=== PATIENT | female | born 1975 | race African-American/Black ===

== ENCOUNTER 2020-03-16 11:33 | Emergency (ER) | payer OTHER, SELFPAY ==
[2020-03-16 11:45] VITALS: BP 151/81; PULSE 93; RESP 16; TEMP 36.9; O2SAT 95; BMI 24.1
--- NOTE | 2020-03-16 12:01 | ED_ITS ---
HPI - Allergic Reaction <JOHNATHON Hdez - Last Filed: 03/16/20 13:47> General Chief complaint: Allergic Reaction Stated complaint: allergic reaction Time Seen by Provider: 03/16/20 11:50 Source: patient Mode of arrival: Ambulatory Limitations: no limitations History of Present Illness HPI narrative: This is a 44 year female, nonsmoker, who has past medical history significant for seizure and opioid dependency presents to ED with chief complain of concerns for allergy reaction with itching raised rash, lower lip swelling, nausea after she had smoked new brand of marijuana on evening. She reports itching rash in neck, upper and lower extremities, buttock, and bilateral foot. Patient reports shortly after the smoke she noticed mild rash on the inner corner of eye that became progressively worse. Patient denies chest pain, dyspnea, swelling to throat or tongue, vomiting. Patient thought she was going to have a seizure yesterday with feeling like passing out but this subsided after resting. Patient reports last seizure was in April 2019 and usually has near-syncope symptoms prior to having a seizure. She states seizure started after cold turkey from pain medication and anti anxiety medication in 2017. Patient denies other exposure to new products. Patient reports normal state of health before the rash started and no recent fever, exposure to COVID. Patient has been using Benadryl 50 mg at a time up to 3 times a day yesterday had taken 1 dose at 6:00 a.m.. She is new in town from [place] and does not have PCP. Related Data Home Medications Medication Instructions Recorded Confirmed ferrous sulfate [Iron (ferrous mg 03/16/20 sulfate)] Previous Rx's Medication Instructions Recorded famotidine [Pepcid] 20 mg PO BID 7 Days #14 tab 03/16/20 prednisone 50 mg PO DAILY 5 Days #5 tab 03/16/20 Allergies Allergy/AdvReac Type Severity Reaction Status Date / Time Penicillins Allergy Urticaria Verified 03/16/20 12:15 Review of Systems <JOHNATHON Hdez - Last Filed: 03/16/20 13:47> Review of Systems Narrative: General: Denies fever, chills, fatigue, malaise, sweats. HEENT: See HPI Respiratory: Denies dyspnea, cough, wheezing, hemoptysis, sputum. Cardiovascular: Denies chest pain, palpitations, orthopnea, edema. Gastrointestinal: Denies (+) nausea, vomiting, abdominal pain, diarrhea, constipation, melena. : Denies dysuria, frequency, incontinence, hematuria, urinary retention. Musculoskeletal: Denies weakness, joint pain or bony pain. Skin: See HPI Neurologic: Denies weakness, headache, numbness, change in speech, confusion, seizures, incoordination. Psychiatric: No concerning psychosocial issues. 12-point review of systems is negative except for those stated above. Patient History <JOHNATHON Hdez - Last Filed: 03/16/20 13:47> Medical History Anemia Back pain Opioid dependence Seizure alcohol intake frequency: 0-2 drinks per day Substance Use Type: marijuana Exam <JOHNATHON Hdez - Last Filed: 03/16/20 13:47> Narrative Exam Narrative: GEN: Alert, oriented x 3, well appearing and nourished, and in no acute distress. Head: Normal cephalic, atraumatic. No scalp or temporal tenderness, palpable mass or rash. EYES: Pupils are equal, round, and reactive to light and accommodation. Extraocular muscles are intact bilaterally. There is no subconjunctival hemorrhage, exudate and sclera non-icteric. ENT: Hearing grossly intact. Nose without bleeding, purulent discharge or deviation. Facial sinuses nontender to palpate. Mucous membrane moist, no mucosal lesion. Throat without erythema, edema, tonsillar hypertrophy or exudate. Mild lower lip swelling. Uvula in midline, airway patent. Neck: Trachea in midline. No JVD, non-tender without lymphadenopathy. No masses or thyroid megaly. Supple, non-tender and no meningeal signs. CARDIAC: Normal regular rate and rhythm without murmurs, gallops, or rubs. No chest wall tenderness. No peripheral edema, cyanosis or pallor. Capillary refill is less than 2 seconds. RESPIRATORY: Lungs are clear to auscultate bilaterally. No cough, wheezes, rales, or rhonchi. No stridor, respiratory distress, increase work of breathing, or accessary muscle used. ABD: Abdomen soft, nontender and non-distended. No guarding or rebound tenderness to palpate. Bowel sounds are normal in all 4 quadrants. There is no palpable masses or organomegaly. EXT: Full painless ROM of all extremities with no loss of sensation, strength, effusion. Bilateral hand edema and redness. SKIN: Warm, dry, normal color for patient. Diffused large size urticaria in buttock, bilateral upper and lower extremities including bilateral hand swelling, itching, neck. BACK: Nontender without deformity or crepitance. No flank tenderness. NEUROLOGICAL: Alert and oriented to place, time and person. Sensation and motor function intact bilaterally. No facial droops, dysphasia. PSYCHIATRIC: Good judgement and reason, without hallucinations, abnormal affect or abnormal behaviors during the examination. Patient is not suicidal. Initial Vital Signs Initial Vital Signs: Vital Signs Temperature 98.5 F 03/16/20 11:45 Pulse Rate 93 H 03/16/20 11:45 Respiratory Rate 16 03/16/20 11:45 Blood Pressure 151/81 H 03/16/20 11:45 Pulse Oximetry 95 03/16/20 11:45 <Allyssa Cortes DO - Last Filed: 03/16/20 19:03> Initial Vital Signs Initial Vital Signs: Vital Signs Temperature 98.5 F 03/16/20 11:45 Pulse Rate 93 H 03/16/20 11:45 Respiratory Rate 16 03/16/20 11:45 Blood Pressure 151/81 H 03/16/20 11:45 Pulse Oximetry 95 03/16/20 11:45 Scores <JOHNATHON Hdez - Last Filed: 03/16/20 13:47> GCS [place] coma scale eye opening: Spontaneous Fabiana coma scale verbal response: Orientated Fabiana coma scale motor response: Obey commands Fabiana coma scale total score: 15 Course <JOHNATHON Hdez - Last Filed: 03/16/20 13:47> Orders Ordered: Discontinued Medications Diphenhydramine HCl (Diphenhydramine 50 Mg/Ml Vial) 50 mg IV NOW ONE Stop: 03/16/20 12:01 Last Admin: 03/16/20 12:14 Dose: 50 mg Documented by: AYDE Famotidine (Pepcid) 20 mg in 50 mls @ 200 mls/hr IV NOW ONE Stop: 03/16/20 12:14 Last Infusion: 03/16/20 12:45 Dose: 0 mls/hr Documented by: Admin: 03/16/20 12:13 Dose: 200 mls/hr Documented by: AYDE Sodium Chloride (Normal Saline 0.9%) 1,000 mls @ 1,000 mls/hr IV BOLUS ONE Stop: 03/16/20 12:59 Last Infusion: 03/16/20 13:47 Dose: 0 mls/hr Documented by: Admin: 03/16/20 12:12 Dose: 1,000 mls/hr Documented by: AYDE Methylprednisolone (Methylprednisolone 125 Mg/2 Ml Vial) 125 mg IV NOW ONE Stop: 03/16/20 12:01 Last Admin: 03/16/20 12:13 Dose: 125 mg Documented by: AYDE Ondansetron HCl (Ondansetron 4 Mg/2 Ml Inj) 4 mg IV NOW ONE Stop: 03/16/20 12:01 Last Admin: 03/16/20 12:14 Dose: 4 mg Documented by: AYDE Reevaluation(s) Reevaluation #1: Improving rash after the medications Time: 12:52 Vital Signs Vital signs: Vital Signs - 8 hr 03/16/20 11:45 03/16/20 13:42 Temperature 98.5 F Pulse Rate 93 H 80 Respiratory Rate 16 16 Blood Pressure 151/81 H 137/71 Pulse Oximetry 95 100 <Allyssa Cortes DO - Last Filed: 03/16/20 19:03> Orders Ordered: Discontinued Medications Diphenhydramine HCl (Diphenhydramine 50 Mg/Ml Vial) 50 mg IV NOW ONE Stop: 03/16/20 12:01 Last Admin: 03/16/20 12:14 Dose: 50 mg Documented by: AYDE Famotidine (Pepcid) 20 mg in 50 mls @ 200 mls/hr IV NOW ONE Stop: 03/16/20 12:14 Last Infusion: 03/16/20 12:45 Dose: 0 mls/hr Documented by: Admin: 03/16/20 12:13 Dose: 200 mls/hr Documented by: AYDE Sodium Chloride (Normal Saline 0.9%) 1,000 mls @ 1,000 mls/hr IV BOLUS ONE Stop: 03/16/20 12:59 Last Infusion: 03/16/20 13:47 Dose: 0 mls/hr Documented by: Admin: 03/16/20 12:12 Dose: 1,000 mls/hr Documented by: KRISTYR Methylprednisolone (Methylprednisolone 125 Mg/2 Ml Vial) 125 mg IV NOW ONE Stop: 03/16/20 12:01 Last Admin: 03/16/20 12:13 Dose: 125 mg Documented by: KRISTYR Ondansetron HCl (Ondansetron 4 Mg/2 Ml Inj) 4 mg IV NOW ONE Stop: 03/16/20 12:01 Last Admin: 03/16/20 12:14 Dose: 4 mg Documented by: BTONER Vital Signs Vital signs: Vital Signs - 8 hr 03/16/20 11:45 03/16/20 13:42 Temperature 98.5 F Pulse Rate 93 H 80 Respiratory Rate 16 16 Blood Pressure 151/81 H 137/71 Pulse Oximetry 95 100 MDM - Allergic Reaction <Berto FrancieJOHNATHON - Last Filed: 03/16/20 13:47> Differential Diagnosis Differential diagnosis: Likely allergic reaction, angioedema and urticaria Medical Records Attestation: I reviewed the patient's medical records. MDM Narrative Medical decision making narrative: This is a 44 year female who presents to ED with urticaria since after she smoked new brand of marijuana. She reports she was in normal state of health before this. Urticaria has been progressively worse since next day. Mild swelling to lower lips in addition to dermatology findings. No oral food pharyngeal edema. No other symptoms related to anaphylaxis. Patient was treated with IV fluid, IV Benadryl, Solu-Medrol, Pepcid and Zofran for intermittent nausea with improving symptoms. Good return precautions and to call 911 for oral pharyngeal swelling, anaphylactic symptoms occurred. Discharged to home to continue with steroids, Pepcid, Benadryl for next 5 days. Patient verbalized understanding in agreement with the treatment plan. Discharge Plan Departure Patient Disposition: Home Clinical Impression: Urticaria Allergic reaction Qualifiers: Encounter type: initial encounter Qualified Code(s): T78.40XA - Allergy, unspecified, initial encounter Instructions: DI for Hives Activity Restrictions/Additional Instructions: You have been diagnosed with [urticaria likely from allergy reaction. Your symptoms improving after the medications he received in ED, Benadryl, Pepcid, Solu-Medrol which is steroids.]. What to do: *Take your medications as directed. Please continue to take Benadryl and follow instruction on pill container. Please take steroids daily for next 5 days. Pepcid twice a day. Keep the area cool to prevent increasing itching. *Follow up with your primary care provider in 2-3 days, call for an appointment. Let them know you were seen in the ED and that we asked you to be seen in follow up. Please call 911 if you develop swelling to her throat, lips, chest pain, breathing difficulty, near syncope. *Return to ED if you have any new, worsening, or concerning symptoms, such as [symptoms as above, fever, joint pain, unable to tolerate fluids or any acute concerns]. Prescriptions: New prednisone 50 mg tablet 50 mg PO DAILY 5 Days Qty: 5 RF: 0 famotidine [Pepcid] 20 mg tablet 20 mg PO BID 7 Days Qty: 14 RF: 0 No Action ferrous sulfate [Iron (ferrous sulfate)] 325 mg (65 mg iron) Tablet RF: 0 Referrals: [facility] [Outside] <Allyssa Cortes DO - Last Filed: 03/16/20 19:03> Cosign ED Attending Costiaraature Attestation: I was immediately available in the department for consultation. Documentation has been reviewed. Case was di scussed. Agree with plan.
[2020-03-16] MEDS: SODIUM CHLORIDE 0.9% 1,000 ML 1000 ML IV (12:12)
[2020-03-16] MEDS: FAMOTIDINE 20 MG/50 ML PIGGYBACK 200 MG IV (12:13)
[2020-03-16] MEDS: methylPREDNISolone 125 MG/2 ML VIAL IV (12:13)
[2020-03-16] MEDS: diphenhydrAMINE 50 MG/ML VIAL IV (12:14)
[2020-03-16] MEDS: ONDANSETRON 4 MG/2 ML INJ IV (12:14)
[2020-03-16 13:42] VITALS: BP 137/71; PULSE 80; RESP 16; O2SAT 100
== END 2020-03-16 14:04 | disposition home or self-care (01) ==
PROVIDERS: Emergency Provider Nurse Practitioner Family
DX: L50.0 Allergic urticaria (principal); R22.0 Localized swelling, mass and lump, head; R11.0 Nausea; T40.7X5A Adverse effect of cannabis (derivatives), initial encounter
CPT/HCPCS: 36415; 96361; 96365; 96375; 99281; 99284; J1200; J2405; J2930